=== PATIENT | male | born 1965 | race Caucasian/White ===

== ENCOUNTER 2016-10-29 11:06 | Emergency (ER) | payer OTHER ==
[~2016-10-29] VITALS: Ht 167.6 cm; Wt 80.7 kg
[2016-10-29 11:33] VITALS: BP 143/89
--- NOTE | 2016-10-29 13:05 | NUR ---
Patient taken to bed 05 via wheelchair per traffic survey technician.
--- NOTE | 2016-10-29 13:07 | NUR ---
PT PRESENTS TO ER S/P FALL OFF LADDER 2 DAYS AGO AND NOW C/O RIGHT FOOT, CHRIS CLAVICULAR, HEADACHE AND UPPER BACK PAIN. HX DM.DENIES LOC DURING THE TIME OF INCIDENT;DENIES N/V/D; SKIN IS PINK/WARM/DRY; AAOX4; LUNGS CLEAR BL; HR EVEN AND REGULAR; PT DENIES ANY FEVER, CP, SOB, OR COUGH AT THIS TIME; PATIENT STATES PAIN OF 5/10 AT THIS TIME;PATIENT POSITIONED FOR COMFORT; HOB ELEVATED; BEDRAILS UP X2; BED DOWN.ALL MONITORS IN PLACED.
--- NOTE | 2016-10-29 13:26 | NUR ---
Dr. Quintero evaluating patient at bedside.
--- NOTE | 2016-10-29 13:35 | NUR ---
ICE PACK APPLIED TO RT FOOT.
[2016-10-29] MEDS ORDERED: ACETAMINOPHEN EXTRA STRENGTH 500 MG TAB PO ONE (14:25)
[2016-10-29] MEDS ORDERED: IBUPROFEN 600 MG TAB PO ONE (14:25)
--- NOTE | 2016-10-29 14:58 | NUR ---
Patient discharged with v/s stable. Written and verbal after care instructions given and explained. Patient alert, oriented and verbalized understanding of instructions. Wheel Chair Assisted with to car. All questions addressed prior to discharge. ID band removed. Patient advised to follow up with PMD. Rx of Zofran and Percocet given. Patient educated on indication of medication including possible reaction and side effects. Opportunity to ask questions provided and answered.
[2016-10-29 15:00] VITALS: BP 148/96
== END 2016-10-29 14:58 | disposition home or self-care (01) ==
LOC: MED 11:06
DX: S93.491A Sprain of other ligament of right ankle, initial encounter (principal); S30.1XXA Contusion of abdominal wall, initial encounter; S20.211A Contusion of right front wall of thorax, initial encounter; S50.01XA Contusion of right elbow, initial encounter; S22.070A Wedge compression fracture of T9-T10 vertebra, initial encounter for closed fracture; S22.080A Wedge compression fracture of T11-T12 vertebra, initial encounter for closed fracture; E11.9 Type 2 diabetes mellitus without complications; R03.0 Elevated blood-pressure reading, without diagnosis of hypertension; W11.XXXA Fall on and from ladder, initial encounter; Y93.89 Activity, other specified; Y92.89 Other specified places as the place of occurrence of the external cause; Y99.8 Other external cause status
CPT/HCPCS: 72080; 73000; 73630; 81002; 82948; 99284